=== PATIENT | male | born 1965 | race Caucasian/White ===

== ENCOUNTER 2018-07-16 17:50 | Emergency (ER) | payer MEDICARE ==
[2018-07-16 18:04] VITALS: BP 129/77
--- NOTE | 2018-07-16 18:12 | UC ---
Skin Complaint HPI - HPI Summary HPI Summary: Patient is a 52 year old gentleman , who present today to the urgent care with possible tick bite to the right shoulder and the right wrist for past 4 days. He reports that he noticed the tick bite on morning. He was out walking in the [place] with his son on Tuesday. He does not recall seeing a take but he tells me that he possibly scratch it away at night but did not see it anywhere. He is to areas of redness on the right wrist and the right shoulder approximately 3-4 cm in size without any drainage. There is a small dark area in the right wrist rash/bite jitendra and he feels that there could be of mouth part of the tick left in there. He reports that he feels a little foggy but he is well oriented and alert. He stopped drinking on Tuesday and also stopped smoking that day. He is to drink 1 pint of bourbon every 2-3 days. He smoked 1/3 pack per day for a long time. She denies any tremors, altered sensorium/delirium. He is well oriented to time place and person. He denies any hallucinations. Denies any fever, chills, cough chest pain or shortness of breath . Denies any abdominal pain , nausea or vomiting , diarrhea or constipation. - History of Current Complaint Chief Complaint: UCRash Time Seen by Provider: 07/16/18 18:09 Stated Complaint: TICK BITES ONWRIST/SHOULDER Hx Obtained From: Patient Pain Intensity: 2 - Allergy/Home Medications Allergies/Adverse Reactions: Allergies Allergy/AdvReac Type Severity Reaction Status Date / Time No Known Allergies Allergy Verified 07/16/18 18:04 PMH/Surg Hx/FS Hx/Imm Hx - Additional Past Medical History Additional PMH: Past Medical History : None Past Surgical History: No Past History of Procedure Family History : Noncontributory Social History : alcohol use(quit 3 days ago), daily smoker(quit 3 days ago) , no drug use. Previously Healthy: Yes - Surgical History Surgical History: None - Social History Alcohol Use: None Alcohol Amount: states stopped drinking 07/12/18 Substance Use Type: None Smoking Status (MU): Former Smoker When Did the Patient Quit Smoking/Using Tobacco: 07/12/18 Review of Systems All Other Systems Reviewed And Are Negative: Yes Constitutional: Positive: Negative Skin: Positive: Rash - Right shoulder and right wrist Eyes: Positive: Negative ENT: Positive: Negative Respiratory: Positive: Negative Cardiovascular: Positive: Negative Gastrointestinal: Positive: Negative Genitourinary: Positive: Negative Motor: Positive: Negative Neurovascular: Positive: Negative Musculoskeletal: Positive: Negative Neurological: Positive: Other - feels foggy but he feels he is well oriented and alert Psychological: Positive: Negative Is Patient Immunocompromised?: No Physical Exam - Summary Physical Exam Summary: Physical Exam: Const: Appears well. No signs of apparent distress present. Well Alert and oriented x 3. Musculo: Walks with a normal gait. Head/Face: Atraumatic, normocephalic on inspection. Eyes: EOMI and PERRLA in both eyes. Conjunctivae clear. No discharge noted ENT: Hearing normal Respiratory: Respirations are unlabored. Lungs clear to auscultation bilaterally, no wheezing , rhonchi or rales noted . CVS: Regular rate and Rhythm, S1S2 normal , no murmurs identified. Extremities: Peripheral circulation is grossly normal. Pulses 2+ Abdomen : Soft non tender , nondistended , Bowel sounds present . No guarding , rebound tenderness or rigidity noted. Skin: 2 erythematous lesions, approximately 4 cm in size -round - right wrist / right shoulder. A small dark spot noted in the right wrist rash. No drainage noted . Neuro: Cranial nerves II to XII intact, motor and sensory intact. DTR Intact bilaterally. Mood is normal. Affect is normal. GCS: 15 Triage Information Reviewed: Yes Vital Signs: Initial Vital Signs Temp 98.4 F 07/16/18 17:57 Pulse 73 07/16/18 17:57 Resp 16 07/16/18 17:57 BP 129/77 07/16/18 17:57 Pulse Ox 98 07/16/18 17:57 Vital Signs Reviewed: Yes Course/Dx - Course Course Of Treatment: During the visit today, I used splinter forcep to try to remove the possible mouth parts of the take but nothing was seen upon expiration . Area was bandaged with a Band-Aid . We also discussed his findings that it is more than 3 days so he does not need any prophylaxis with doxycycline but if he is concerned we can give him full treatment of Lyme to which he agreed. He does not have any tachycardia or hypertension, does not have any hallucinations or delirium and he is well alert and oriented. Does not appear to be like he is in alcohol withdrawal/delirium tremens. We discussed that he should monitor his symptoms and return to ER if he develops any of that. He expressed understanding He was given one dose of doxycycline here . - Diagnoses Provider Diagnosis: Tick bite Discharge - Sign-Out/Discharge Documenting (check all that apply): Patient Departure All imaging exams completed and their final reports reviewed: No Studies - Discharge Plan Condition: Stable Disposition: HOME Prescriptions: DOXYcycline CAP(*) [DOXYcycline 100MG CAP(*)] 100 mg PO BID 14 Days #27 cap Referrals: Mehrdad Walton MD [Primary Care Provider] - 1 Week Additional Instructions: Please start taking the medication as prescribed to the pharmacy . Follow up with your primary care doctor in 1 week Patients blood pressure slightly high (prehypertensive) in Urgent care today , plan follow up with PCP for better control Return to Urgent care / ER if symptoms get worse. - Billing Disposition and Condition Condition: STABLE Disposition: Home
[2018-07-16] MEDS ORDERED: DOXYcycline CAP(*) 100 MG PO ONE (18:44)
== END 2018-07-16 18:56 | disposition home or self-care (01) ==
LOC: UCEAST 17:50
DX: T63.481A Toxic effect of venom of other arthropod, accidental (unintentional), initial encounter (principal); Y92.9 Unspecified place or not applicable; Z87.891 Personal history of nicotine dependence
CPT/HCPCS: 99202; A9270-GY; G0463

== ENCOUNTER 2018-07-24 10:08 | Emergency (ER) | payer MEDICARE ==
--- NOTE | 2018-07-24 10:23 | ED ---
HPI Chest Pain - HPI Summary HPI Summary: A 52 y/o M presents to ED c/o mid-sternal CP onset yesterday at noon and worsening. He was sleeping at onset. The pain radiates directly to his back. He notes a tick bite on his R wrist approx one week ago and [place] [facility] [place] given a two week course of Doxy which he is taking. Aggravating factors: inhalation, lying on L side. Alleviating factors: lying on R side. Denies recent diet changes. - History of Current Complaint Chief Complaint: EDChestPainROMI Time Seen by Provider: 07/24/18 10:17 Hx Obtained From: Patient Onset/Duration: Started Hours Ago, Atraumatic, Still Present Timing: Constant Initial Severity: Moderate Current Severity: Moderate Pain Intensity: 4 Pain Scale Used: 0-10 Numeric Chest Pain Location: Mid Sternal Chest Pain Radiates: Yes Chest Pain Radiates To:: Back Aggravating Factor(s): Position - lying on L, Deep Breaths - inhalation Alleviating Factor(s): Position - lying on R Associated Signs and Symptoms: Positive: Negative - Allergy/Home Medications Allergies/Adverse Reactions: Allergies Allergy/AdvReac Type Severity Reaction Status Date / Time No Known Allergies Allergy Verified 07/16/18 18:04 PMH/Surg Hx/FS Hx/Imm Hx Previously Healthy: Yes Sensory History: Denies: Hx Legally Blind, Hx Deafness Opthamlomology History: Denies: Hx Legally Blind EENT History: Denies: Hx Deafness Neurological History: Denies: Hx Dementia Infectious Disease History: No Infectious Disease History: Denies: Traveled Outside the [place] in Last 30 Days - Family History Family History: mom at 57 y/o from [place]. estranged from father. - Social History Occupation: Unemployed - OTHER Lives: Dormitory/Roommates Alcohol Use: None Alcohol Amount: states stopped drinking 07/12/18 Hx Substance Use: No Substance Use Type: Reports: None Hx Tobacco Use: Yes - stopped 07/12/18 Smoking Status (MU): Former Smoker Review of Systems Positive: Chest Pain Musculoskeletal: Other - pos: back pain radiating from chest All Other Systems Reviewed And Are Negative: Yes Physical Exam - Summary Physical Exam Summary: Appearance: The patient is well-nourished in no acute distress and in no acute pain. Skin: The skin is warm and dry and skin color reflects adequate perfusion. HEENT: The head is normocephalic and atraumatic. The pupils are equal and reactive. The conjunctivae are clear and without drainage. Nares are patent and without drainage. Mouth reveals moist mucous membranes and the throat is without erythema and exudate. The external ears are intact. The ear canals are patent and without drainage. The tympanic membranes are intact. Neck: the neck is supple with full range of motion and non-tender. There are no carotid bruits. There is no neck vein distension. Respiratory: Chest is non-tender. Left upper lobe crackles. Cardiovascular: Heart is regular rate and rhythm. There is no murmur or rub auscultated. There is no peripheral edema and pulses are symmetrical and equal. Abdomen: The abdomen is soft and non-tender. There are normal bowel sounds heard in all four quadrants and there is no organomegaly palpated. Musculoskeletal: There is no back tenderness noted. Extremities are non-tender with full range of motion. There is good capillary refill. There is no peripheral edema or calf tenderness elicited. Neurological: Patient is alert and oriented to person, place and time. The patient has symmetrical motor strength in all four extremities. Cranial nerves are grossly intact. Deep tendon reflexes are symmetrical and equal in all four extremities. Psychiatric: The patient has an appropriate affect and does not exhibit any anxiety or depression. Triage Information Reviewed: Yes Vital Signs On Initial Exam: Initial Vitals Temp Pulse Resp BP Pulse Ox 97.7 F 70 18 154/84 98 07/24/18 10:10 07/24/18 10:10 07/24/18 10:10 07/24/18 10:10 07/24/18 10:10 Vital Signs Reviewed: Yes Diagnostics - Vital Signs Vital Signs Temp Pulse Resp BP Pulse Ox 07/24/18 10:10 97.7 F 70 18 154/84 98 - Laboratory Result Diagrams: 07/24/18 10:27 07/24/18 10:27 Lab Statement: Any lab studies that have been ordered have been reviewed, and results considered in the medical decision making process. - Radiology CXR Radiology Interpretation Completed By: Radiologist Summary of Radiographic Findings: IMPRESSION: NO EVIDENCE FOR ACTIVE CARDIOPULMONARY DISEASE. ED provider has reviewed this report. - EKG 1017 Cardiac Rate: NL - 68 bpm EKG Rhythm: Sinus Rhythm ST Segment: Normal Ectopy: None Summary of EKG Findings: No STEMI. Re-Evaluation - Re-Evaluation 1 Re-Evaluation Time: 12:30 Change: Unchanged Comment: Discussing results thus far, and will wait for second trop. Patient is agreeable to this. 2 Re-Evaluation Time: 13:55 Change: Unchanged Comment: Discussing second trop is unchanged and will discharge home. Patient is agreeable to this. Chest Pain Course/Dx - Course Course Of Treatment: Mr. Bartlett presented complaining of an atypical chest pain that awakened him this morning. He was nontoxic in appearance with stable vitals and kept on a monitor while workup was in progress. EKG, chest x-ray and labs including a d-dimer and delayed troponin were unremarkable. I reassured him that I didn't think anything dangerous was going on and that this was likely a chest wall pain. I recommended he follow-up this week with his PCP. - Diagnoses Provider Diagnoses: Chest pain Discharge - Sign-Out/Discharge Documenting (check all that apply): Patient Departure - D/C Patient Received Moderate/Deep Sedation with Procedure: No - Discharge Plan Condition: Stable Disposition: HOME Patient Education Materials: Chest Pain (ED) Referrals: Mehrdad Walton MD [Primary Care Provider] - 3 Days Additional Instructions: Please return to the ED if you experience new or worsening symptoms. Follow up with your primary care provider in 2-3 days. - Billing Disposition and Condition Condition: STABLE Disposition: Home - Attestation Statements Document Initiated by Renitaibe: Yes Documenting Scribe: Leslie Gardner Provider For Whom Gonzales is Documenting (Include Credential): Dr. Clem Cisneros MD Scribe Attestation: Leslie Boyd scribed for Dr. Clem Cisneros MD on 07/24/18 at 1458. Scribe Documentation Reviewed: Yes Provider Attestation: The documentation as recorded by the Leslie sanabria accurately reflects the service I personally performed and the decisions made by me, Dr. Clem Cisneros MD Status of Scribe Document: Viewed
[2018-07-24 10:39] LABS: ABS Lymphocytes 2.8 10^3/ul (1.0-4.8); ABS Neutrophils 6.6 10^3/ul (1.5-7.7); Hematocrit 45 % (42-52); Hemoglobin 15.6 g/dL (14.0-18.0); Mean Corpuscular HGB Conc 34 g/dL (31-36); Mean Corpuscular Hemoglobin 30 pg (27-31); Mean Corpuscular Volume 88 fL (80-94); Mean Platelet Volume 7.8 fL (7.4-10.4); Platelet Count 398 10^3/uL (150-450); Red Blood Count 5.15 10^6 /uL (4.18-5.48); Red Cell Distribution Width 14 % (10-15); White Blood Count 10.6 10^3/uL (3.5-10.8)
[2018-07-24 10:40] LABS: ABS Basophils 0.1 10^3/ul (0-0.2); ABS Eosinophils 0.2 10^3/ul (0-0.6); ABS Monocytes 0.8 10^3/ul (0-0.8); Eosinophil % 1.7 %; Lymphocyte % 26.5 %; Nucleated Red Blood Cells % 0.1
[2018-07-24 10:46] LABS: INR 0.98 (0.82-1.09)
[2018-07-24 10:57] LABS: Albumin 4.4 g/dL (3.2-5.2); Albumin/Globulin Ratio 1.3 (1-3); BUN/Creatinine Ratio 17.2 (8-20); Calcium 9.6 mg/dL (8.6-10.3); EGFR African American 67.7 (>60); Globulin 3.3 g/dL (2-4); Total Bilirubin 0.4 mg/dL (0.2-1.0); Total Protein 7.7 g/dL (6.4-8.9)
[2018-07-24 11:14] LABS: Potassium 4.3 mmol/L (3.5-5.0)
[2018-07-24] MEDS ORDERED: Ketorolac INJ* 30 MG/ML 1 ML VIAL IV PUSH ONE (12:33)
[2018-07-24 14:02] VITALS: BP 113/79
== END 2018-07-24 14:04 | disposition home or self-care (01) ==
LOC: ED 10:08
DX: R07.9 Chest pain, unspecified (principal); Z87.891 Personal history of nicotine dependence
CPT/HCPCS: 36415; 71046; 80053; 84484; 85025; 85610; 93005; 96374; 99283; J1885